=== PATIENT | male | born 1990 | race Caucasian/White ===

== ENCOUNTER 2018-01-17 18:56 | Emergency (ER) | payer OTHER ==
--- NOTE | 2018-01-17 19:57 | EDPHY ---
H & P Stated Complaint: Headache, sore throat Time Seen by Provider: 01/17/18 19:56 HPI/ROS: CHIEF COMPLAINT: Headache, sore throat HISTORY OF PRESENT ILLNESS: The patient presents the ED for evaluation of a headache and sore throat that began on Wednesday. The patient denies fever. He has taken approximately 800 mg of ibuprofen today. Prior to arrival the patient had some worsening neck pain and reported he was unable to move his neck secondary to discomfort. The symptoms have improved. The patient complains of a mild frontal headache. He complains of an ongoing sore throat with mild odynophagia. He denies additional complaints. He denies any recent antibiotic use. He denies any insect bites. He denies travel outside the [place]. The patient was seen at urgent care and had a negative strep and flu test. REVIEW OF SYSTEMS: A comprehensive 10 point review of systems is otherwise negative aside from elements mentioned in the history of present illness. Source: Patient Exam Limitations: No limitations - Personal History Current Tetanus/Diphtheria Vaccine: Unsure - Medical/Surgical History Hx Asthma: No Hx Chronic Respiratory Disease: No Hx Diabetes: No Hx Cardiac Disease: No Hx Renal Disease: No Hx Cirrhosis: No Hx Alcoholism: No Hx HIV/AIDS: No Hx Splenectomy or Spleen Trauma: No Other PMH: denies - Social History Smoking Status: Never smoked - Physical Exam Exam: General Appearance: Alert, no distress Eyes: Pupils equal and round no pallor or injection ENT, Mouth: Minimal pharyngeal erythema, no exudate, no peritonsillar swelling Respiratory: There are no retractions, lungs are clear to auscultation Cardiovascular: Regular rate and rhythm Gastrointestinal: Abdomen is soft and nontender, no masses, bowel sounds normal Neurological: A&O, normal motor function, normal sensory exam, normal cranial nerves Skin: Warm and dry, no rashes Musculoskeletal: Neck is supple nontender, no meningeal symptoms Extremities: symmetrical, full range of motion Constitutional: Initial Vital Signs Temperature (C) 36.6 C 01/17/18 19:07 Heart Rate 81 01/17/18 19:07 Respiratory Rate 16 01/17/18 19:07 Blood Pressure 137/95 H 01/17/18 19:07 O2 Sat (%) 94 01/17/18 19:07 O2 Delivery Mode Room Air Allergies/Adverse Reactions: No Known Allergies Allergy (Unverified 01/17/18 19:09) Home Medications: Medication Instructions Recorded NK [No Known Home Meds] 01/17/18 Medical Decision Making ED Course/Re-evaluation: The patient presents to the ED with a viral syndrome with associated headache and mild neck discomfort. The patient has no meningeal symptoms. He had an IV established. He received 30 mg of IV Toradol. I re-evaluated the patient at 8:50 p.m.. He is feeling much better. We discussed the risks and benefits of lumbar puncture. The patient does understand that I cannot fully exclude meningitis without performing lumbar puncture. My clinical suspicion for bacterial meningitis is low. He understands I cannot exclude viral meningitis. Given the patient's response to Toradol he is comfortable going home and returning to the ED for any progressive symptoms. He has had intermittent symptoms for the past 3 days. The patient was noted to have leukocytosis which is felt to be consistent with a viral syndrome. - Data Points Laboratory Results: Laboratory Results 01/17/18 19:50 01/17/18 19:50 01/17/18 01/17/18 19:50 19:50 WBC 15.19 10^3/uL H 10^3/uL (3.80-9.50) RBC 5.50 10^6/uL 10^6/uL (4.40-6.38) Hgb 15.8 g/dL g/dL (13.7-17.5) Hct 46.8 % % (40.0-51.0) MCV 85.1 fL fL (81.5-99.8) MCH 28.7 pg pg (27.9-34.1) MCHC 33.8 g/dL g/dL (32.4-36.7) RDW 12.9 % % (11.5-15.2) Plt Count 256 10^3/uL 10^3/uL (150-400) MPV 10.2 fL fL (8.7-11.7) Neut % (Auto) 67.8 % % (39.3-74.2) Lymph % (Auto) 19.2 % % (15.0-45.0) Adams % (Auto) 10.9 % % (4.5-13.0) Eos % (Auto) 1.2 % % (0.6-7.6) Baso % (Auto) 0.5 % % (0.3-1.7) Nucleat RBC Rel Count 0.0 % % (0.0-0.2) Absolute Neuts (auto) 10.29 10^3/uL H 10^3/uL (1.70-6.50) Absolute Lymphs (auto) 2.92 10^3/uL 10^3/uL (1.00-3.00) Absolute Monos (auto) 1.66 10^3/uL H 10^3/uL (0.30-0.80) Absolute Eos (auto) 0.18 10^3/uL 10^3/uL (0.03-0.40) Absolute Basos (auto) 0.08 10^3/uL 10^3/uL (0.02-0.10) Absolute Nucleated RBC 0.00 10^3/uL 10^3/uL (0-0.01) Immature Gran % 0.4 % % (0.0-1.1) Immature Gran # 0.06 10^3/uL 10^3/uL (0.00-0.10) Platelet Estimate Pending Sodium 140 mEq/L mEq/L (135-145) Potassium 4.0 mEq/L mEq/L (3.3-5.0) Chloride 99 mEq/L mEq/L (97-110) Carbon Dioxide 27 mEq/l mEq/l (22-31) Anion Gap 14 mEq/L mEq/L (8-16) BUN 22 mg/dL mg/dL (7-23) Creatinine 1.1 mg/dL mg/dL (0.7-1.3) Estimated GFR > 60 Glucose 83 mg/dL mg/dL (70-100) Calcium 9.2 mg/dL mg/dL (8.5-10.4) Medications Given: Discontinued Medications Ketorolac Tromethamine (Toradol) 30 mg IVP EDNOW ONE Stop: 01/17/18 20:15 Last Admin: 01/17/18 20:22 Dose: 30 mg Departure - Departure Disposition: Home, Routine, Self-Care Clinical Impression: Viral syndrome Condition: Good Instructions: Viral Syndrome (ED) Additional Instructions: 1. Take Ibuprofen or Motrin 600 mg by mouth three times a day. 2. Tylenol 650 mg every 6 hr for pain 3. Return to the ED for any worsening headache, neck stiffness or other concerns. As we discussed in the emergency department, we cannot fully evaluate the possibility of meningitis without performing a lumbar puncture. It is imperative you return to the emergency department in 12 hr if you are having any worsening symptoms, intractable vomiting, numbness, weakness or other concerns. Referrals: NONE *PRIMARY CARE P,. [Primary Care Provider] - As per Instructions
[2018-01-17] MEDS ORDERED: KETOROLAC 30 MG/1 ML SDV IVP ONE (20:14)
[2018-01-17 20:20] LABS: PLATELET COUNT 256 10^3/uL (150-400)
[2018-01-17 20:58] VITALS: BP 143/83
== END 2018-01-17 20:59 | disposition home or self-care (01) ==
DX: B34.9 Viral infection, unspecified (principal)
CPT/HCPCS: 96374; J1885